=== PATIENT | male | born 1960 | race Caucasian/White ===

== ENCOUNTER 2017-11-26 16:07 | Emergency (ER) | payer BC ==
[~2017-11-26] VITALS: Ht 190.5 cm; Wt 90.0 kg
[2017-11-26 16:35] VITALS: BP 177/90; PULSE 65; RESP 16; TEMP 98.3; O2SAT 99
--- NOTE | 2017-11-26 17:54 | PD ---
HPI Chief Complaint: Injury Time Seen by Provider: 17:45 Travel History International Travel<30 days: No Contact w/Intl Traveler<30days: No Traveled to known affect area: No History of Present Illness HPI 57-year-old right-handed male presents to the emergency room for evaluation of left wrist pain and swelling after injuring it just prior to arrival. Patient was about 2 or 3 feet up on a ladder when he lost his balance and fell backwards. States he twisted on the way down and landed on his left upper arm. He denies any significant pain or hearing any cracks or breaks at that time. States he then landed on his back and has mild back pain. He denies hitting his head or loss of consciousness. He has not taken anything for symptoms. Patient was able to shower and apply ice before coming to the emergency room. He denies paresthesias. Reports minimal back pain. Denies difficulty walking, loss of bowel or bladder control, or saddle anesthesia. Only reports history of Ascencio's esophagus and hypertension. PFSH Social History Tobacco Use: No Allergies-Medications Reported Meds & Prescriptions Reported Meds & Active Scripts Active Hydrocodone-Acetaminophen 5-325 mg Tab 1 Tab PO Q6H PRN Review of Systems Except as stated in HPI: all other systems reviewed are Neg Physical Exam Narrative GENERAL: Well-nourished, well-developed male in no acute distress. Afebrile. Ambulatory. SKIN: Focused skin assessment warm/dry. Moderate erythema and ecchymosis of the left distal wrist. HEAD: Normocephalic. EYES: No scleral icterus. No injection or drainage. NECK: Supple, trachea midline. No JVD or lymphadenopathy. CARDIOVASCULAR: Regular rate and rhythm without murmurs, gallops, or rubs. RESPIRATORY: Breath sounds equal bilaterally. No accessory muscle use. MUSCULOSKELETAL: No cyanosis. Significant edema of the left distal wrist. 2+ radial pulse. Radial, ulnar, and median nerves intact. Limited range of motion of the wrist secondary to pain. Moderate tenderness to palpation of the distal wrist. Data Data Last Documented VS Vital Signs Date Time Temp Pulse Resp B/P (MAP) Pulse Ox O2 Delivery O2 Flow Rate FiO2 11/26/17 16:35 98.3 65 16 177/90 (119) 99 Orders Orders Wrist, Complete ([id number]) (6/18/18 ) Splint Or Brace Apply/Monitor (11/26/17 18:33) [employer] Request For Service (11/26/17 18:39) [facility] Medical Decision Making Medical Screen Exam Complete: Yes Emergency Medical Condition: Yes Medical Record Reviewed: Yes Differential Diagnosis Sprain, strain, contusion, dislocation, fracture Narrative Course 57-year-old right-handed male presents to the emergency room for evaluation of left wrist pain and swelling after injuring it just prior to arrival. Patient fell about 2 or 3 feet off of a ladder and landed on the left wrist. He denies any other significant injuries. He has been ambulatory since then. No paresthesias. Physical exam reveals moderate edema, ecchymosis, erythema of the left distal wrist. There is obvious deformity. 2+ radial pulse. Radial, ulnar, and median nerves intact. Patient has limited range of motion of the wrist secondary to pain. He can supinate and pronate without significant difficulty. X-ray shows minimally displaced, intra-articular fracture of the distal wrist. He was placed in a sugar tong splint. Discharge with prescription for hydrocodone. Told to follow-up on orthopedic surgeon within 1 week. Stressed the importance of follow-up because it is intra-articular. His is established with an orthopedic surgeon in the state follow-up should not be difficult. He understands and agrees to plan. Diagnosis Primary Impression: Left wrist fracture Qualified Codes: S62.102A - Fracture of unspecified carpal bone, left wrist, initial encounter for closed fracture Referrals: Reji Hawkins MD Additional Instructions: Rest and drink plenty of fluids. Take Lovell as directed, as needed for pain. Do not drink alcohol or drive while taking this medication. Take ibuprofen with food as directed, as needed for pain. Apply ice to the affected area for 20 minutes at a time, as needed for pain and swelling. Follow-up with a primary care physician. Return to the emergency room for worsening symptoms. Med/Other Pt SpecificInfo: Prescription(s) given Scripts Hydrocodone-Acetaminophen (Hydrocodone-Acetaminophen) 5-325 mg Tab 1 TAB PO Q6H Y for PAIN, #12 TAB 0 Refills Prov: Mars Flor MD 11/26/17 Disposition: 01 DISCHARGE HOME Condition: Stable Gabrielle Marsh Nov 26, 2017 17:54
--- NOTE | 2017-11-26 18:07 | RADRPT ---
EXAM DATE: 11/26/2017 6:04 PM EDT AGE/SEX: 57 years / Male INDICATIONS: Left lateral wrist pain post fall from ladder. CLINICAL DATA: This is the patient's initial encounter. Patient reports that signs and symptoms have been present for 1 day and indicates a pain score of 10/10. MEDICAL/SURGICAL HISTORY: None. None. COMPARISON: No prior exams available for comparison. FINDINGS: There is an intra-articular mildly displaced fracture through the distal radius. No other fractures i dentified. No dislocation. CONCLUSION: Mildly displaced intra-articular fracture of the distal radius. Electronically signed by: Dionicio Russell MD 11/26/2017 6:06 PM EDT
[2017-11-26] MEDS ORDERED: HYDR-3516 PO (18:40)
== END 2017-11-26 20:04 | disposition home or self-care (01) ==
LOC: NEPK 16:07
DX: S52.572A Other intraarticular fracture of lower end of left radius, initial encounter for closed fracture (principal); M54.6 Pain in thoracic spine; I10 Essential (primary) hypertension; W11.XXXA Fall on and from ladder, initial encounter
CPT/HCPCS: 29125; 73110